=== PATIENT | male | born 1980 | race Two or more races ===

== ENCOUNTER 2024-11-26 08:45 | Emergency (ER) | payer OTHER ==
[~2024-11-26] VITALS: Ht 172.7 cm; Wt 72.6 kg
[2024-11-26] MEDS: LIDOCAINE HCL 1% 20 ML VIAL TP ONE (09:43)
[2024-11-26] MEDS ORDERED: HYDR-3972 PO (10:09)
[2024-11-26] MEDS ORDERED: CEPH500C2 PO (10:09)
[2024-11-26] MEDS: NEOMY/BACITRA/POLYMYXIN B OINT UD PACKET TP ONE (10:14)
[2024-11-26] MEDS ORDERED: CEphaleXIN 500 MG CAPSULE ONE (10:15)
[2024-11-26] MEDS: CEphaleXIN 500 MG CAPSULE PO ONE (10:24)
[2024-11-26 10:47] VITALS: BP 133/89; O2SAT 99
== END 2024-11-26 10:30 | disposition home or self-care (01) ==
LOC: ER 08:45
DX: S61.213A Laceration without foreign body of left middle finger without damage to nail, initial encounter (principal); S61.215A Laceration without foreign body of left ring finger without damage to nail, initial encounter; Z88.7 Allergy status to serum and vaccine; W20.8XXA Other cause of strike by thrown, projected or falling object, initial encounter; Y93.89 Activity, other specified; Y92.89 Other specified places as the place of occurrence of the external cause; Y99.8 Other external cause status
CPT/HCPCS: A4606; A4663

== ENCOUNTER 2024-11-28 09:29 | Emergency (ER) | payer OTHER ==
[~2024-11-28] VITALS: Ht 170.2 cm; Wt 86.2 kg
[~2024-11-28 09:29] MED LIST: CEPH500C2 PO; HYDR-3972 PO
[2024-11-28 09:34] VITALS: O2SAT 98
[2024-11-28] MEDS ORDERED: NEOMY/BACITRAC/POLYMI OINT 28.35 GM TUBE ONE (09:47)
== END 2024-11-28 10:01 | disposition home or self-care (01) ==
LOC: ER 09:29
DX: S61.213D Laceration without foreign body of left middle finger without damage to nail, subsequent encounter (principal); S61.215D Laceration without foreign body of left ring finger without damage to nail, subsequent encounter; Z48.00 Encounter for change or removal of nonsurgical wound dressing; Z79.899 Other long term (current) drug therapy; Z88.7 Allergy status to serum and vaccine; X58.XXXD Exposure to other specified factors, subsequent encounter
CPT/HCPCS: A4606; A4663